=== PATIENT | female | born 1965 | race Two or more races ===

== ENCOUNTER 2025-10-13 13:05 | Outpatient (CLI) | payer MEDICAID ==
--- NOTE | 2025-10-13 14:00 | DVH ---
US US GUIDANCE FOR NEEDLE PLACEME, HISTORY: NONTOXIC SINGLE THYROID NODULE PROCEDURE: An informed consent was obtained. Limited localization ultrasound of the thyroid gland was obtained. The right neck base was prepped with chlorhexidine which was allowed to dry and draped in the usual sterile fashion. Timeout was performed. The skin and soft tissues were infiltrated with 1% Xylocaine. With ultrasound guidance, multiple fine needle aspirate biopsies of the nodule were obtained using a 25 gauge Secure-cut needle. The neck was cleaned and a sterile band-aid applied. The specimens were sent to pathology for analysis. No immediate complication was identified. FINDINGS: Limited ultrasound of the thyroid during the biopsy demonstrates biopsy needle within nodule. IMPRESSION: ultrasound FNA of right lower thyroid nodule.
== END 2025-10-13 17:00 | disposition home or self-care (01) ==
LOC: US 13:05
PROVIDERS: ATTEND Family Medicine
DX: E04.1 Nontoxic single thyroid nodule (principal)
CPT/HCPCS: 10005; 76942; 88173